=== PATIENT | female | born 1975 | race Caucasian/White ===

== ENCOUNTER 2016-10-20 10:02 | Emergency (ER) | payer SELFPAY ==
--- NOTE | 2016-10-20 10:29 | ER Document Report ---
ED Medical Screen (RME) - General Stated Complaint: EAR PAIN Notes: onset: five weeks cough, productive for five weeks associated sob, wheezing and dyspnea has been treated with abx and steroids for bronchitis dx took amoxicillin for ten days (-) influenza vaccine no significant PMH I have greeted and performed a rapid initial assessment of this patient. A comprehensive ED assessment and evaluation of the patient, analysis of test results and completion of the medical decision making process will be conducted by additional ED providers. TRAVEL OUTSIDE OF THE [place] IN LAST 30 DAYS: No - Related Data Allergies/Adverse Reactions: azithromycin [From Zithromax Z-Jake] Allergy (Verified 06/16/12 18:39) iodine [Iodine] Allergy (Verified 06/16/12 18:39) sulfamethoxazole [From Bactrim] Allergy (Verified 06/16/12 18:39) trimethoprim [From Bactrim] Allergy (Verified 06/16/12 18:39) acetaminophen [From Percocet] Adverse Reaction (Verified 06/16/12 18:39) ibuprofen [From Motrin] Adverse Reaction (Verified 06/16/12 18:39) oxycodone HCl [From Percocet] Adverse Reaction (Verified 06/16/12 18:39) propoxyphene napsylate [From Darvocet-N 100] Adverse Reaction (Verified 18:39) Past Medical History - Past Medical History Cardiac Medical History: Denies: Hx Coronary Artery Disease, Hx Heart Attack, Hx Hypertension Pulmonary Medical History: Denies: Hx Asthma, Hx Bronchitis, Hx COPD, Hx Pneumonia Neurological Medical History: Reports: Hx Migraine. Denies: Hx Cerebrovascular Accident, Hx Seizures Musculoskeltal Medical History: Denies Hx Arthritis Past Surgical History: Reports: Hx Breast Surgery - Breast Reduction, Hx Orthopedic Surgery, Hx Tubal Ligation. Denies: Hx Pacemaker - Immunizations Hx Diphtheria, Pertussis, Tetanus Vaccination: Yes - Tdap 06/26/11
[2016-10-20 12:59] LABS: ABSOLUTE BASOPHILS # (AUTO) 0.1 10^3/uL (0.0-0.2); ABSOLUTE EOSINOPHILS # (AUTO) 0.1 10^3/uL (0.0-0.6); ABSOLUTE LYMPHOCYTES (AUTO) 2.6 10^3/uL (0.5-4.7); ABSOLUTE NEUT (AUTO) 8.5 10^3/uL (1.7-8.2); BASOPHILS % (AUTO) 0.7 % (0-2); EOSINOPHILS % (AUTO) 1.2 % (0-6); HEMATOCRIT 38.4 % (36.0-47.0); HEMOGLOBIN 13.1 g/dL (12.0-15.5); HGB HCT DIFFERENCE 0.9; LYMPHOCYTES % (AUTO) 21.2 % (13-45); MEAN CORPUSCULAR HEMOGLOBIN 30.6 pg (27.0-33.4); MEAN CORPUSCULAR VOLUME 90 fl (80-97); RED BLOOD COUNT 4.26 10^6/uL (3.72-5.28); RED CELL DISTRIBUTION WIDTH 13.3 % (11.5-14.0); SEGMENTED NEUTROPHILS % (AUTO) 68.9 % (42-78); WHITE BLOOD COUNT 12.3 10^3/uL (4.0-10.5)
--- NOTE | 2016-10-20 13:03 | ER Document Report ---
HPI - HPI Patient complains to provider of: cough Onset: Other - 5 weeks Onset/Duration: Constant Quality of pain: Achy Pain Level: 2 Context: Patient complains of cough for the past 5 weeks. Patient states that her child has had a cough for 5 weeks as well. Patient denies any fever today. Patient does complain of some mild sore throat. Associated Symptoms: Nonproductive cough, Sore throat. denies: Earache Exacerbated by: Denies Relieved by: Denies Similar symptoms previously: Yes Recently seen / treated by doctor: No - ROS ROS below otherwise negative: Yes Systems Reviewed and Negative: Yes All other systems reviewed and negative - CONSTITUTIONAL Constitutional: DENIES: Fever - EENT EENT: REPORTS: Sore Throat - RESPIRATORY Respiratory: REPORTS: Coughing. DENIES: Trouble Breathing - GASTROINTESTINAL Gastrointestinal: DENIES: Abdominal Pain, Nausea, Patient vomiting - REPRODUCTIVE Reproductive: DENIES: : - DERM Skin Color: Normal Skin Problems: None Past Medical History - General Information source: Patient - Social History Smoking Status: Never Smoker Chew tobacco use (# tins/day): No Frequency of alcohol use: None Drug Abuse: None Lives with: Family Family History: CAD Patient has suicidal ideation: No Patient has homicidal ideation: No - Past Medical History Cardiac Medical History: Denies: Hx Coronary Artery Disease, Hx Heart Attack, Hx Hypertension Pulmonary Medical History: Denies: Hx Asthma, Hx Bronchitis, Hx COPD, Hx Pneumonia Neurological Medical History: Reports: Hx Migraine. Denies: Hx Cerebrovascular Accident, Hx Seizures Renal/ Medical History: Denies: Hx Peritoneal Dialysis Musculoskeltal Medical History: Denies Hx Arthritis Past Surgical History: Reports: Hx Breast Surgery - Breast Reduction, Hx Orthopedic Surgery, Hx Tubal Ligation. Denies: Hx Pacemaker - Immunizations Hx Diphtheria, Pertussis, Tetanus Vaccination: Yes - Tdap 06/26/11 Vertical Provider Document - CONSTITUTIONAL Agree With Documented VS: No - apical heart rate 92 bpm Exam Limitations: No Limitations General Appearance: WD/WN, No Apparent Distress - INFECTION CONTROL TRAVEL OUTSIDE OF THE [place] IN LAST 30 DAYS: No - HEENT HEENT: Atraumatic, Normocephalic, Pharyngeal Tenderness. negative: Pharyngeal Exudate, Pharyngeal Erythema, Tympanic Membrane Red, Tympanic Membrane Bulging - NECK Neck: Supple, Lymphadenopathy-Right - RESPIRATORY Respiratory: No Respiratory Distress, Chest Non-Tender, Other - Occasional dry cough O2 Sat by Pulse Oximetry: 96 - GI/ABDOMEN Gastrointestinal: Abdomen Soft - BACK Back: Normal Inspection. negative: CVA Tenderness-Right, CVA Tenderness-Left - MUSCULOSKELETAL/EXTREMETIES Musculoskeletal/Extremeties: LESVIA MARRUFO - NEURO Level of Consciousness: Awake, Alert, Appropriate Motor/Sensory: No Motor Deficit, No Sensory Deficit - DERM Integumentary: Warm, Dry, No Rash Course - Vital Signs Vital signs: Temp Pulse Resp BP Pulse Ox 98.6 F 110 H 20 122/74 96 10/20/16 10:27 10/20/16 10:27 10/20/16 10:27 10/20/16 10:27 10/20/16 10:27 - Laboratory Result Diagrams: 10/20/16 12:50 10/20/16 12:50 Laboratory results interpreted by me: 10/20/16 12:50 WBC 12.3 H Absolute Neutrophils 8.5 H 10/20/16 14:50 Labs- Entire Visit 10/20/16 10/20/16 10/20/16 12:50 12:50 12:50 WBC 12.3 H RBC 4.26 Hgb 13.1 Hct 38.4 MCV 90 MCH 30.6 MCHC 34.0 RDW 13.3 Plt Count 258 Seg Neutrophils % 68.9 Lymphocytes % 21.2 Monocytes % 8.0 Eosinophils % 1.2 Basophils % 0.7 Absolute Neutrophils 8.5 H Absolute Lymphocytes 2.6 Absolute Monocytes 1.0 Absolute Eosinophils 0.1 Absolute Basophils 0.1 Sodium 140.2 Potassium 3.9 Chloride 103 Carbon Dioxide 26 Anion Gap 11 BUN 11 Creatinine 0.71 Est GFR ( Amer) > 60 Est GFR (Non-Af Amer) > 60 Glucose 89 Calcium 9.9 Total Bilirubin 0.6 Direct Bilirubin 0.0 AST 27 ALT 30 Alkaline Phosphatase 83 Total Protein 7.8 Albumin 4.5 Monotest Cancelled 10/20/16 14:05 WBC RBC Hgb Hct MCV MCH MCHC RDW Plt Count Seg Neutrophils % Lymphocytes % Monocytes % Eosinophils % Basophils % Absolute Neutrophils Absolute Lymphocytes Absolute Monocytes Absolute Eosinophils Absolute Basophils Sodium Potassium Chloride Carbon Dioxide Anion Gap BUN Creatinine Est GFR ( Amer) Est GFR (Non-Af Amer) Glucose Calcium Total Bilirubin Direct Bilirubin AST ALT Alkaline Phosphatase Total Protein Albumin Monotest NEGATIVE 10/22/16 10:12 - Diagnostic Test Radiology reviewed: Reports reviewed Discharge - Discharge Clinical Impression: Cough Upper respiratory infection Qualifiers: URI type: unspecified URI Qualified Code(s): J06.9 - Acute upper respiratory infection, unspecified Condition: Stable Disposition: HOME, SELF-CARE Instructions: Upper Respiratory Illness ([facility]) Additional Instructions: Return immediately for any new or worsening symptoms Followup with your primary care provider, call tomorrow to make a followup appointment Follow-up with a light bulb tester for further evaluation of chronic cough Prescriptions: Benzonatate [Tessalon Perle 100 mg Capsule] 100 mg PO Q8HP PRN #20 cap PRN Reason: Referrals: BONIFACIO DALY MD [ACTIVE PROVISIONAL STAFF] - Follow up in 3-5 days [facility] [Provider Group] - Follow up tomorrow
[2016-10-20 13:36] LABS: ALANINE AMINOTRANSFERASE 30 U/L (9-52); ALBUMIN 4.5 g/dL (3.5-5.0); ALKALINE PHOSPHATASE 83 U/L (38-126); ANION GAP 11 (5-19); ASPARTATE AMINO TRANSFERASE 27 U/L (14-36); BILIRUBIN,TOTAL 0.6 mg/dL (0.2-1.3); BLOOD UREA NITROGEN 11 mg/dL (7-20); CALCIUM 9.9 mg/dL (8.4-10.2); CARBON DIOXIDE 26 mmol/L (22-30); CHLORIDE 103 mmol/L (98-107); CREATININE RESULT 0.71 mg/dL (0.52-1.25); GLUCOSE 89 mg/dL (75-110); POTASSIUM 3.9 mmol/L (3.6-5.0); SODIUM 140.2 mmol/L (137-145); TOTAL PROTEIN 7.8 g/dL (6.3-8.2)
[2016-10-20 17:15] VITALS: BP 118/62
== END 2016-10-20 15:45 | disposition home or self-care (01) ==
LOC: ER 10:02
DX: J06.9 Acute upper respiratory infection, unspecified (principal); R05 Cough; J02.9 Acute pharyngitis, unspecified
CPT/HCPCS: 36415; 71020; 80053; 85025; 86308; 99283

== ENCOUNTER 2019-03-10 18:40 | Emergency (ER) | payer SELFPAY ==
--- NOTE | 2019-03-10 19:41 | ER Document Report ---
ED Medical Screen (RME) - General Chief Complaint: Abdominal Pain Stated Complaint: LOWER ABDOMINAL PAIN Time Seen by Provider: 03/10/19 19:37 Primary Care Provider: JUDITH LEMA CNM [Primary Care Provider] - Follow up as needed TRAVEL OUTSIDE OF THE [place] IN LAST 30 DAYS: No - HPI Notes: 03/10/19 19:40 Patient is a 43-year-old female with a history of ovarian cyst who presents complaining right lower quadrant abdominal pain intermittently for several months, but more constant over the last several days. Patient was evaluated by her MAP EDITOR today and had a transvaginal ultrasound was unremarkable. Her MAP EDITOR wanted her evaluated here for further work-up and evaluation. She is eating and drinking without a Landry. She is urinating normally and having normal bowel movements. No other vaginal discharge, odor, or bleeding. Denies STONE, fever, neck pain, URI, CP, SOB, dysuria, back pain, or rash. I have treated and performed a rapid initial assessment of this patient. A comprehensive ED assessment and evaluation of the patient, analysis of test results and completion of medical decision making process will be conducted by additional ED providers. PHYSICAL EXAMINATION: GENERAL: Well-appearing, well-nourished and in no acute distress. A&Ox4. Answers questions appropriately. LUNGS: Breath sounds clear to auscultation bilaterally and equal. No wheezes rales or rhonchi. HEART: Regular rate and rhythm without murmurs, rubs, gallops. ABDOMEN: Soft, nondistended abdomen. No guarding, no rebound. Normal bowel sounds present. No CVA tenderness bilaterally. + RLQ tenderness (cannot elicit thorough abd exam w/o bed, however). - Related Data Allergies/Adverse Reactions: azithromycin [From Zithromax Z-Jake] Allergy (Verified 10/20/16 10:27) iodine [Iodine] Allergy (Verified 10/20/16 10:27) sulfamethoxazole [From Bactrim] Allergy (Verified 10/20/16 10:27) trimethoprim [From Bactrim] Allergy (Verified 10/20/16 10:27) acetaminophen [From Percocet] Adverse Reaction (Verified 10/20/16 10:27) ibuprofen [From Motrin] Adverse Reaction (Verified 10/20/16 10:27) oxycodone HCl [From Percocet] Adverse Reaction (Verified 10/20/16 10:27) propoxyphene napsylate [From Darvocet-N 100] Adverse Reaction (Verified 10/20/16 10:27) Past Medical History - Past Medical History Cardiac Medical History: Denies: Hx Coronary Artery Disease, Hx Heart Attack, Hx Hypertension Pulmonary Medical History: Denies: Hx Asthma, Hx Bronchitis, Hx COPD, Hx Pneumonia Neurological Medical History: Reports: Hx Migraine. Denies: Hx Cerebrovascular Accident, Hx Seizures Renal/ Medical History: Denies: Hx Peritoneal Dialysis Musculoskeltal Medical History: Denies Hx Arthritis Past Surgical History: Reports: Hx Breast Surgery - Breast Reduction, Hx Orthopedic Surgery, Hx Tubal Ligation. Denies: Hx Pacemaker - Immunizations Hx Diphtheria, Pertussis, Tetanus Vaccination: Yes - Tdap 06/26/11 Physical Exam - Vital signs Vitals: Temp Pulse Resp BP Pulse Ox 98.7 F 87 16 123/77 100 03/10/19 19:06 03/10/19 19:06 03/10/19 19:06 03/10/19 19:06 03/10/19 19:06 Course - Vital Signs Vital signs: Temp Pulse Resp BP Pulse Ox 98.7 F 87 16 123/77 100 03/10/19 19:06 03/10/19 19:06 03/10/19 19:06 03/10/19 19:06 03/10/19 19:06 Doctor's Discharge - Discharge Referrals: JUDITH LEMA CNM [Primary Care Provider] - Follow up as needed
[2019-03-10 20:48] LABS: ABSOLUTE EOSINOPHILS # (AUTO) 0.1 10^3/uL (0.0-0.6); ABSOLUTE LYMPHOCYTES (AUTO) 3.8 10^3/uL (0.5-4.7); ABSOLUTE MONOCYTES (AUTO) 0.7 10^3/uL (0.1-1.4); ABSOLUTE NEUT (AUTO) 7.2 10^3/uL (1.7-8.2); BASOPHILS % (AUTO) 0.4 % (0-2); EOSINOPHILS % (AUTO) 1.1 % (0-6); HEMATOCRIT 40.2 % (36.0-47.0); HEMOGLOBIN 13.8 g/dL (12.0-15.5); LYMPHOCYTES % (AUTO) 31.7 % (13-45); MEAN CORPUSCULAR HEMOGLOBIN 30.8 pg (27.0-33.4); MEAN CORPUSCULAR HGB CONC 34.3 g/dL (32.0-36.0); MEAN CORPUSCULAR VOLUME 90 fl (80-97); MONOCYTES % (AUTO) 6.1 % (3-13); PLATELET COUNT 302 10^3/uL (150-450); RED BLOOD COUNT 4.47 10^6/uL (3.72-5.28); RED CELL DISTRIBUTION WIDTH 12.9 % (11.5-14.0); SEGMENTED NEUTROPHILS % (AUTO) 60.7 % (42-78); TOTAL CELLS COUNTED % (AUTO) 100 %; WHITE BLOOD COUNT 11.9 10^3/uL (4.0-10.5)
[2019-03-10 20:52] LABS: APPEARANCE,URINE SLIGHTLY-CLOUDY; BILIRUBIN,URINE NEGATIVE (NEGATIVE); COLOR,URINE YELLOW; GLUCOSE, URINE NEGATIVE (NEGATIVE); KETONES,URINE NEGATIVE (NEGATIVE); LEUKOCYTE ESTERASE,URINE NEGATIVE (NEGATIVE); NITRITE,URINE NEGATIVE (NEGATIVE); PROTEIN,URINE NEGATIVE (NEGATIVE); URINE SPECIFIC GRAVITY 1.018; UROBILINOGEN,URINE NEGATIVE mg/dL (<2.0)
[2019-03-10 21:05] LABS: ALANINE AMINOTRANSFERASE 22 U/L (9-52); ALBUMIN 4.5 g/dL (3.5-5.0); ALKALINE PHOSPHATASE 74 U/L (38-126); ANION GAP 8 (5-19); ASPARTATE AMINO TRANSFERASE 21 U/L (14-36); BILIRUBIN,DIRECT 0.2 mg/dL (0.0-0.4); BILIRUBIN,TOTAL 0.2 mg/dL (0.2-1.3); BLOOD UREA NITROGEN 12 mg/dL (7-20); CALCIUM 9.9 mg/dL (8.4-10.2); CARBON DIOXIDE 27 mmol/L (22-30); CHLORIDE 103 mmol/L (98-107); GLUCOSE 90 mg/dL (75-110); POTASSIUM 4.3 mmol/L (3.6-5.0); SODIUM 138.1 mmol/L (137-145); TOTAL PROTEIN 7.5 g/dL (6.3-8.2)
--- NOTE | 2019-03-10 22:06 | RADIOLOGY REPORT (SQ) ---
EXAM DESCRIPTION: CT ABDOMEN PELVIS WITH IV CONTRAST COMPLETED DATE/TME: 03/10/2019 19:41 CLINICAL HISTORY: 43 years Female RLQ pain COMPARISON: None. TECHNIQUE: Contiguous axial images obtained through the abdomen and pelvis following IV contrast. Reformatted images obtained. This exam was performed according to our department optimization program which includes automated exposure control, adjustment of the mA and/or kv according to patient size and/or use of iterative reconstruction technique. FINDINGS: Fatty infiltration of the liver The spleen and pancreas appear unremarkable. No adrenal masses. The kidneys appear unremarkable. No hydronephrosis. The gallbladder is visualized. No aneurysmal dilatation of the aorta. No bowel obstruction. The appendix is unremarkable. No significant free fluid noted. Collapsed left ovarian cyst measuring 2.3 cm. This is almost certain benign and no follow-up is recommended. IMPRESSION: No acute abnormality is identified. Collapsed simple appearing left ovarian cyst. No follow-up is recommended.
[2019-03-10] MEDS ORDERED: ONDANSETRON HCL INJ/PF 4 MG/2 ML SDV IV ONE (22:40)
--- NOTE | 2019-03-10 23:45 | ER Document Report ---
ED General - General Chief Complaint: Abdominal Pain Stated Complaint: LOWER ABDOMINAL PAIN Time Seen by Provider: 03/10/19 19:37 Primary Care Provider: JUDITH LEMA CNM [ALLIED HEALTH PROFESSIONAL] - Follow up in 3-5 days Notes: Patient is a 43-year-old female presents with complaint of 6 months of intermittent pain that in the right lower quadrant radiates around to the right flank. Recently having some pain into the right lower back as well. She is followed by power wood sawyer. An ultrasound recently did's did not show any ovarian cyst. She was seen today again because of pain and was referred to the ER for f urther evaluation. No fevers. No vomiting. No diarrhea. No abnormal vaginal discharge or bleeding. No dysuria. No other complaints at this time. TRAVEL OUTSIDE OF THE [place] IN LAST 30 DAYS: No - Related Data Allergies/Adverse Reactions: azithromycin [From Zithromax Z-Jake] Allergy (Verified 10/20/16 10:27) iodine [Iodine] Allergy (Verified 10/20/16 10:27) sulfamethoxazole [From Bactrim] Allergy (Verified 10/20/16 10:27) trimethoprim [From Bactrim] Allergy (Verified 10/20/16 10:27) acetaminophen [From Percocet] Adverse Reaction (Verified 10/20/16 10:27) ibuprofen [From Motrin] Adverse Reaction (Verified 10/20/16 10:27) oxycodone HCl [From Percocet] Adverse Reaction (Verified 10/20/16 10:27) propoxyphene napsylate [From Darvocet-N 100] Adverse Reaction (Verified 10/20/16 10:27) Past Medical History - Social History Smoking Status: Never Smoker Chew tobacco use (# tins/day): No Frequency of alcohol use: None Drug Abuse: None Family History: CAD Patient has suicidal ideation: No Patient has homicidal ideation: No - Past Medical History Cardiac Medical History: Denies: Hx Coronary Artery Disease, Hx Heart Attack, Hx Hypertension Pulmonary Medical History: Denies: Hx Asthma, Hx Bronchitis, Hx COPD, Hx Pneumonia Neurological Medical History: Reports: Hx Migraine. Denies: Hx Cerebrovascular Accident, Hx Seizures Renal/ Medical History: Denies: Hx Peritoneal Dialysis Musculoskeletal Medical History: Denies Hx Arthritis Past Surgical History: Reports: Hx Breast Surgery - Breast Reduction, Hx Orthopedic Surgery, Hx Tubal Ligation. Denies: Hx Pacemaker - Immunizations Hx Diphtheria, Pertussis, Tetanus Vaccination: Yes - Tdap 06/26/11 Review of Systems - Review of Systems Notes: My Normal Review Basic REVIEW OF SYSTEMS: CONSTITUTIONAL : Denies fever, chills, or sweats. Denies recent illness. EENT: Denies eye, ear, throat, or mouth pain or symptoms. Denies nasal or sinus congestion. CARDIOVASCULAR: Denies chest pain. RESPIRATORY: Denies cough, cold, or chest congestion. Denies shortness of breath, difficulty breathing, or wheezing. GASTROINTESTINAL: Right sided abdominal pain. Denies nausea, vomiting, or diarrhea. GENITOURINARY: Denies difficulty urinating, painful urination, burning, frequency, or blood in urine. MUSCULOSKELETAL: Denies neck or back pain or joint pain or swelling. SKIN: Denies rash or skin lesions. NEUROLOGICAL: Denies altered mental status or loss of consciousness. Denies headache. Denies weakness or paralysis or loss of use of either side. Denies problems with gait or speech. Denies sensory or motor loss. ALL OTHER SYSTEMS REVIEWED AND NEGATIVE. Physical Exam - Vital signs Vitals: Temp Pulse BP Pulse Ox 98.7 F 98 123/77 98 03/10/19 19:02 03/10/19 19:02 03/10/19 19:02 03/10/19 19:02 - Notes Notes: General Appearance: Well nourished, alert, cooperative, no acute distress, no obvious discomfort. Vitals: reviewed, See vital signs table. Eyes: PERRL, EOMI, Conjuctiva clear Mouth: No decreasd moisture Lungs: No wheezing, No rales, No rhonci, No accessory muscle use, good air exchange bilaterally. Heart: Normal rate, Regular rythm, No murmur, no rub Abdomen: Normal BS, soft, No rigidity, no right lower quadrant abdominal tenderness to palpation, no guarding, no rebound, no abdominal masses, no organomegaly Extremities: strength 5/5 in all extremities, good pulses in all extremities, no swelling or tenderness in the extremities, no edema. Skin: warm, dry, appropriate color, no rash Neuro: speech clear, oriented x 3, normal affect, responds appropriately to questions. Course - Re-evaluation Re-evalutation: 03/10/19 23:46 The exact cause of her pain is not 100% clear. Is been intermittent now for 6 months. He has no urinary symptoms so she with. No abnormal vaginal discharge or bleeding. She is the pain is not started to radiate from the back around the flank. This could indicate that she has a pinched nerve; however, she did not have initially back pain when the pain first started [address] scan does not show any concerning findings. She is been followed by a power wood sawyer who sent ultrasounds which sometimes persists but not always. She has no cyst on her right ovary at this time and nothing on her CT scan indicate why she is having intermittent pain on the right side. At this time I do not see anything concerning on exam or on work-up. I feel she safe to be discharged home to continue follow-up and outpatient work-up. I encouraged her return to ER if she has worsening pain, fevers, vomiting, or feels unwell. Patient agrees with plan will be discharged home. Dictation of this chart was performed using voice recognition software; therefore, there may be some unintended grammatical errors. - Vital Signs Vital signs: Temp Pulse Resp BP Pulse Ox 98.2 F 98 16 112/71 99 03/10/19 23:57 03/10/19 23:57 03/10/19 19:06 03/10/19 23:57 03/10/19 23:57 - Laboratory Result Diagrams: 03/10/19 20:23 03/10/19 20:23 Laboratory results interpreted by me: 03/10/19 03/10/19 20:23 20:23 WBC 11.9 H Urine Blood SMALL H Discharge - Discharge Clinical Impression: Abdominal pain Qualifiers: Abdominal location: right lower quadrant Qualified Code(s): R10.31 - Right lower quadrant pain Condition: Good Disposition: HOME, SELF-CARE Additional Instructions: The exact cause of your recurrent right lower abdominal and flank pain is not 100% clear. Your CT scan did not show any concerning findings. Your blood work and urine studies were normal. The only thing on your CT scan that was seen was a collapsed ovarian cyst on the left. This would not explain why you are having pain on the right. Sometimes a pinched nerve in your back can cause pain that radiates around the flank and into the right lower portion of the abdomen. Most times an individual will have back pain with this but not always. If pain continues then please talk to your doctor about consideration for an outpatient MRI of your lumbar spine to look for evidence of pinched nerve. Please have a low threshold to return to the ER if you have fevers, vomiting, or intractable pain. Referrals: JUDITH LEMA, MENDEL [ALLIED HEALTH PROFESSIONAL] - Follow up in 3-5 days
[2019-03-10 23:59] VITALS: BP 112/71
== END 2019-03-11 | disposition home or self-care (01) ==
LOC: ER 18:40
DX: R10.31 Right lower quadrant pain (principal)
CPT/HCPCS: 99284; 96374; 36415; 83690; 85025; 81025; 80053; 81001; 74177; J2405